=== PATIENT | male | born 1970 ===

== ENCOUNTER 2019-02-28 09:41 | Emergency (ER) | payer OTHER ==
[~2019-02-28] VITALS: Ht 182.9 cm; Wt 75.8 kg
[2019-02-28 10:30] VITALS: BP 141/89; TEMP 98.6
== END 2019-02-28 10:38 | disposition home or self-care (01) ==
LOC: ED 09:41
DX: L30.9 Dermatitis, unspecified (principal); L08.9 Local infection of the skin and subcutaneous tissue, unspecified
CPT/HCPCS: 99282